=== PATIENT | female | born 2000 | race Caucasian/White ===

== ENCOUNTER 2020-05-05 11:44 | Emergency (ER) | payer OTHER ==
[~2020-05-05] VITALS: Ht 162.6 cm; Wt 75.3 kg
[2020-05-05] MEDS ORDERED: PRENA1 TRUE CO1 EACH (12:00)
== END 2020-05-05 17:22 | disposition home or self-care (01) ==
LOC: ER 11:44
DX: O26.891 Other specified pregnancy related conditions, first trimester (principal); R10.2 Pelvic and perineal pain; O42.911 Preterm premature rupture of membranes, unspecified as to length of time between rupture and onset of labor, first trimester; Z03.818 Encounter for observation for suspected exposure to other biological agents ruled out; Z3A.13 13 weeks gestation of pregnancy

== ENCOUNTER 2020-10-02 15:19 | Inpatient (IN) | payer OTHER ==
[~2020-10-02] VITALS: Ht 165.1 cm; Wt 81.6 kg
[~2020-10-02 15:19] MED LIST: PRENA1 TRUE CO1 EACH
[2020-10-05] MEDS ORDERED: NIFEDIPINE10 MG PO (06:58)
[2020-10-05] MEDS ORDERED: HYDROXYZINE PAM50 MG PO (06:58)
== END 2020-10-05 10:51 | disposition home or self-care (01) | DRG 833 ==
LOC: OB/GYN 15:19 → LDR 15:19 → OB/GYN 10-03 08:05
PROVIDERS: ADMIT Obstetrics & Gynecology; ATTEND Obstetrics & Gynecology
PROC: 4A1HXFZ Monitoring of Products of Conception, Cardiac Rhythm, External Approach (ICD-10-PCS; principal; 2020-10-02)
PROC: BY4FZZZ Ultrasonography of Third Trimester, Single Fetus (ICD-10-PCS; 2020-10-02)
DX: O47.03 False labor before 37 completed weeks of gestation, third trimester (principal); O24.410 Gestational diabetes mellitus in pregnancy, diet controlled; Z3A.33 33 weeks gestation of pregnancy; Z20.822 Contact with and (suspected) exposure to COVID-19

== ENCOUNTER 2020-11-12 05:22 | Inpatient (IN) | payer OTHER ==
[~2020-11-12] VITALS: Ht 165.1 cm; Wt 88.0 kg
[~2020-11-12 05:22] MED LIST changes: +HYDROXYZINE PAM50 MG PO; +NIFEDIPINE10 MG PO
== END 2020-11-14 14:36 | disposition home or self-care (01) | DRG 807 ==
LOC: SURG-SUITE 05:22 → OB/GYN 05:22 → LDR 05:22 → OB/GYN 12:14 → SURG-SUITE 14:20
PROVIDERS: ADMIT Obstetrics & Gynecology; ATTEND Obstetrics & Gynecology
PROC: 10E0XZZ Delivery of Products of Conception, External Approach (ICD-10-PCS; principal; 2020-11-12)
PROC: 0HQ9XZZ Repair Perineum Skin, External Approach (ICD-10-PCS; 2020-11-12)
PROC: 10907ZC Drainage of Amniotic Fluid, Therapeutic from Products of Conception, Via Natural or Artificial Opening (ICD-10-PCS; 2020-11-12)
PROC: 3E033VJ Introduction of Other Hormone into Peripheral Vein, Percutaneous Approach (ICD-10-PCS; 2020-11-12)
PROC: 4A1HXFZ Monitoring of Products of Conception, Cardiac Rhythm, External Approach (ICD-10-PCS; 2020-11-12)
DX: O24.429 Gestational diabetes mellitus in childbirth, unspecified control (principal); O70.0 First degree perineal laceration during delivery; Z37.0 Single live birth; Z3A.39 39 weeks gestation of pregnancy; Z20.822 Contact with and (suspected) exposure to COVID-19